=== PATIENT | male | born 1980 | race Caucasian/White ===

== ENCOUNTER 2016-03-26 14:42 | Emergency (ER) | payer SELFPAY ==
--- NOTE | 2016-03-26 16:31 | ERRECORD ---
[facility] EMERGENCY RECORD HPI ABDOMINAL PAIN (FriMar 27, 2016 00:04 MPUR) CHIEF COMPLAINT: Patient presents for evaluation of knot under belly button. HISTORIAN: History provided by patient, 1 week history knot under belly button. awoke with it one day and it has persisted with soreness. seems worse when reaching or straining. QUALITY: Pain is dull in nature, described as aching. SEVERITY: Maximum severity of symptoms mild, Currently symptoms are mild. TIME COURSE: There has been no change in the patient's symptoms over time. ASSOCIATED WITH: No associated symptoms. RELIEVED BY: Patient's condition relieved by nothing. EXACERBATED BY: Patient's condition exacerbated by nothing. ROS (FriMar 27, 2016 00:07 MPUR) CONSTITUTIONAL: Historian denies fever. EYES: Historian denies eye pain. ENT: Historian denies rhinorrhea. CARDIOVASCULAR: Historian denies chest pain. RESPIRATORY: Historian denies cough. GI: Denies N,V,D,C See also HPI. GENITOURINARY MALE: Historian denies dysuria. MUSCULOSKELETAL: Historian denies arthralgias. SKIN: Historian denies rash. NEUROLOGIC: Historian denies seizures. ENDOCRINE: Historian denies skin changes. HEMO/LYMPHATIC: Historian denies easy bruising. PAST MEDICAL HISTORY (14:50 EPIE) MEDICAL HISTORY: No past medical history, Flu vaccine not up to date, Tetanus not up to date, Pneumococcal vaccine not up to date,. MALE SURGICAL HISTORY: Patient has no surgical history,. PSYCHIATRIC HISTORY: No previous psychiatric history,. SOCIAL HISTORY: Patient denies alcohol use, Patient denies drug use, Patient currently uses tobacco, smokes cigarettes, daily, Patient smokes 1 pack per day. FAMILY HISTORY: Family history is non-contributory to this case. KNOWN ALLERGIES No Known Drug Allergies CURRENT MEDICATIONS (14:49 EPIE) None VITAL SIGNS (14:47 EPIE) VITAL SIGNS: BP: 135/72, Pulse: 84, Resp: 20 (Non-Labored), Temp: 97.9 (Oral), Pain: 6, O2 sat: 97 on Room Air, Time: 03/26/2016 14:47. &a-1R&a+25V*p+0X*p5760V*c202B*c15G*c2P*p-0X&a-25V&a+1R Name: Quinten Mendoza : 1980 M36 MedRec: [id number] AcctNum: [id number] Prepared: FriMar 27, 2016 00:15 by Interface Page 1 of 3 pMD [facility] EMERGENCY RECORD PHYSICAL EXAM CONSTITUTIONAL: Vital signs reviewed. (FriMar 27, 2016 00:07 MPUR) HEAD: Head exam included findings of head atraumatic. (FriMar 27, 2016 00:07 MPUR) EYES: Eye exam included findings of eyelids normal to inspection, Sclera normal. (FriMar 27, 2016 00:07 MPUR) ENT: Nose exam normal, no nasal deformity, mucous membranes moist. (FriMar 27, 2016 00:07 MPUR) NECK: Trachea midline, no contusions. (FriMar 27, 2016 00:07 MPUR) RESPIRATORY CHEST: Respiratory exam included findings of no respiratory distress, Breath sounds clear, no increased work of breathing, rate nl. (FriMar 27, 2016 00:07 MPUR) CARDIOVASCULAR: Cardiovascular exam included findings of heart rate regular rate and rhythm, Heart sounds normal. (FriMar 27, 2016 00:07 MPUR) ABDOMEN MALE: Abdominal exam included findings of abdomen tender, periumbilical, Bowel sounds normal, Liver normal, Spleen normal, no distension, Mass palpated, periumbilical 2.6-4.0 cm in diameter, Palpation of abd revealed umbilical hernia with mild tenderness. It was successfully reduced with pressure and relief of the sxs. (FriMar 27, 2016 00:08 MPUR) LOWER EXTREMITY: no cyanosis, no edema. (FriMar 27, 2016 00:07 MPUR) NEURO: Speech normal, Memory normal, alert, moving all extremities well. (FriMar 27, 2016 00:07 MPUR) SKIN: Skin exam included findings of skin warm, dry, no rash. (FriMar 27, 2016 00:07 MPUR) PSYCHIATRIC: Normal affect, Recent memory normal. (FriMar 27, 2016 00:07 MPUR) DOCTOR NOTES RE-EVALUATION: Routine re-evaluation, after observation, The patient's condition has improved, x 15 miutes all sx had resolved. (FriMar 27, 2016 00:11 MPUR) TEXT: I have reviewed and agree with nurse's past medical, family, and social history as documented on chart. Pt's vital signs have been reviewed. (FriMar 27, 2016 00:07 MPUR) PROBLEM LIST No recorded problems DIAGNOSIS (16:02 MPUR) FINAL: PRIMARY: umbilical hernia, reduced. PRESCRIPTION No recorded prescriptions &a-1R&a+25V*p+0X*s0636P*c202B*c15G*c2P*p-0X&a-25V&a+1R Name: Quinten Mendoza : 1980 6 MedRec: [id number] AcctNum: [id number] Prepared: FriMar 27, 2016 00:15 by Interface Page 2 of 3 pMD [facility] EMERGENCY RECORD DISPOSITION PATIENT: Disposition Type: Discharge, Disposition: *Discharge Home. (16:02 MPUR) Patient left the department. (16:23 EPIE) Snow: EPIE=AYLA Blanchard, Minerva MPUR=MD Trey, Junior &a-1R&a+25V*p+0X*k8494P*c202B*c15G*c2P*p-0X&a-25V&a+1R Name: Reji Sarmad : 1980 M36 MedRec: [id number] AcctNum: [id number] Prepared: FriMar 27, 2016 00:15 by Interface Page 3 of 3 pMD MTDD
--- NOTE | 2016-03-26 16:37 | PICIS ---
[facility] EMERGENCY RECORD TRIAGE (FriMar 26, 2016 14:49 EPIE) TRIAGE NOTES: Pt has an abdominal knot started one week ago. States it hurts with movement. (FriMar 26, 2016 14:49 EPIE) PATIENT: NAME: Cora Mendoza, AGE: 36, GENDER: male, : Fri1980, TIME OF GREET: FriMar 26, 2016 14:42, PREFERRED LANGUAGE: Taiwanese, ETHNICITY: Not or , ECODE BILLING MAP: [facility] ER, SSN: [id number], Zip Code: [address], KG WEIGHT: [phone], PHONE: , , , PERSON ID: [id number], PCP: none. (FriMar 26, 2016 14:49 EPIE) COMPLAINT: ABDOMINAL PAIN. (FriMar 26, 2016 14:49 EPIE) ADMISSION: URGENCY: 3 Urgent, ADMISSION SOURCE: Home, TRANSPORT: CAR, BED: TRIAGE. (FriMar 26, 2016 14:49 EPIE) TRIAGE SCREENING: Patient denies suicidal ideation, Patient denies presence of domestic violence. (14:50 EPIE) TREATMENTS IN PROGRESS: Treatments given Prehospital: none. (14:50 EPIE) PROVIDERS: TRIAGE NURSE: Minerva Blanchard RN. (FriMar 26, 2016 14:49 EPIE) VITAL SIGNS: BP 135/72, Pulse 84, Resp 20, (Non-Labored), Temp 97.9, (Oral), Pain 6, O2 Sat 97, on Room Air, Time 03/26/2016 14:47. (14:47 EPIE) PREVIOUS VISIT ALLERGIES: No Known Drug Allergies. (FriMar 26, 2016 14:49 EPIE) No Known Drug Allergies. (14:50 EPIE) KNOWN ALLERGIES No Known Drug Allergies CURRENT MEDICATIONS (14:49 EPIE) None VITAL SIGNS (14:47 EPIE) VITAL SIGNS: BP: 135/72, Pulse: 84, Resp: 20 (Non-Labored), Temp: 97.9 (Oral), Pain: 6, O2 sat: 97 on Room Air, Time: 03/26/2016 14:47. NURSING ASSESSMENT: ABDOMEN (15:00 EPIE) CONSTITUTIONAL: Patient arrives ambulatory, Gait steady, History obtained from patient, Patient appears comfortable, Patient cooperative, Patient alert, Oriented to person, place and time, Skin warm, Skin dry, Skin normal in color, Mucous membranes pink, Mucous membranes moist, Patient is well-groomed, Pt has an abdominal knot started one week ago. States it hurts with movement. PAIN: aching pain, periumbilical, Onset of pain 03/19/2016, on a scale 0-10 patient rates pain as 6. ABDOMEN: Abdomen assessment findings include abdomen symmetrical, Hernia to, umbilical region, Abdomen soft, no associated nausea, no associated vomiting, no associated diarrhea. &a-1R&a+25V*p+0X*l1163M*c202B*c15G*c2P*p-0X&a-25V&a+1R Name: Cora Mendoza : 1980 M36 MedRec: [id number] AcctNum: [id number] Prepared: FriMar 27, 2016 00:21 by Interface Page [address] [facility] EMERGENCY RECORD GENITOURINARY MALE: no associated urinary complaints. NURSING PROCEDURE: DISCHARGE NOTE (16:18 BELE) DISCHARGE: Patient discharged to home, ambulating without assistance, friend driving, accompanied by friend, Summary of Care printed/ provided, Patient requested and was provided an electronic copy of Discharge Instructions, Transition record given to patient, Discharge instructions given to patient, Simple or moderate discharge teaching performed, by FRANCOISE LEOS RN, STRESSED IMPORTANCE OF SEEKING MEDICAL EVAL ITEMIZED IN WRITTEN DISCHARGE INSTRUCTIONS., Medication reconciliation form given, Above person(s) verbalized understanding of discharge instructions and follow-up care, Notes: PATIENT HAD NO QUESTIONS, INDICATED HE WILL FOLLOW UP WITH DR. JEONG INSTRUCTED. NURSING PROCEDURE: NURSE NOTES NURSES NOTES: Notes: Patient resting with RR even and unlabored. No new complaints at this time. Awaiting for ERMD to assess patient. (15:51 EPIE) Notes: PATIENT SITTING ON BED WITHOUT APPARENT DISTRESS. STATES HIS PAIN HAS DISSIPATED AND HE FEELS MUCH BETTER. PAIN RATED A ZERO OR 1 ON NUMERIC PAIN SCALE OF 1-10. (16:10 BELE) HPI ABDOMINAL PAIN (FriMar 27, 2016 00:04 MPUR) CHIEF COMPLAINT: Patient presents for evaluation of knot under belly button. HISTORIAN: History provided by patient, 1 week history knot under belly button. awoke with it one day and it has persisted with soreness. seems worse when reaching or straining. QUALITY: Pain is dull in nature, described as aching. SEVERITY: Maximum severity of symptoms mild, Currently symptoms are mild. TIME COURSE: There has been no change in the patient's symptoms over time. ASSOCIATED WITH: No associated symptoms. RELIEVED BY: Patient's condition relieved by nothing. EXACERBATED BY: Patient's condition exacerbated by nothing. ROS (FriMar 27, 2016 00:07 MPUR) CONSTITUTIONAL: Historian denies fever. EYES: Historian denies eye pain. ENT: Historian denies rhinorrhea. CARDIOVASCULAR: Historian denies chest pain. RESPIRATORY: Historian denies cough. GI: Denies N,V,D,C See also HPI. GENITOURINARY MALE: Historian denies dysuria. MUSCULOSKELETAL: Historian denies arthralgias. SKIN: Historian denies rash. NEUROLOGIC: Historian denies seizures. ENDOCRINE: Historian denies skin changes. HEMO/LYMPHATIC: Historian denies easy bruising. &a-1R&a+25V*p+0X*c0371V*c202B*c15G*c2P*p-0X&a-25V&a+1R Name: Cora Mendoza : 1980 M36 MedRec: [id number] AcctNum: [id number] Prepared: FriMar 27, 2016 00:21 by Interface Page [address] [facility] EMERGENCY RECORD PAST MEDICAL HISTORY (14:50 EPIE) MEDICAL HISTORY: No past medical history, Flu vaccine not up to date, Tetanus not up to date, Pneumococcal vaccine not up to date,. MALE SURGICAL HISTORY: Patient has no surgical history,. PSYCHIATRIC HISTORY: No previous psychiatric history,. SOCIAL HISTORY: Patient denies alcohol use, Patient denies drug use, Patient currently uses tobacco, smokes cigarettes, daily, Patient smokes 1 pack per day. FAMILY HISTORY: Family history is non-contributory to this case. PHYSICAL EXAM CONSTITUTIONAL: Vital signs reviewed. (FriMar 27, 2016 00:07 MPUR) HEAD: Head exam included findings of head atraumatic. (FriMar 27, 2016 00:07 MPUR) EYES: Eye exam included findings of eyelids normal to inspection, Sclera normal. (FriMar 27, 2016 00:07 MPUR) ENT: Nose exam normal, no nasal deformity, mucous membranes moist. (FriMar 27, 2016 00:07 MPUR) NECK: Trachea midline, no contusions. (FriMar 27, 2016 00:07 MPUR) RESPIRATORY CHEST: Respiratory exam included findings of no respiratory distress, Breath sounds clear, no increased work of breathing, rate nl. (FriMar 27, 2016 00:07 MPUR) CARDIOVASCULAR: Cardiovascular exam included findings of heart rate regular rate and rhythm, Heart sounds normal. (FriMar 27, 2016 00:07 MPUR) ABDOMEN MALE: Abdominal exam included findings of abdomen tender, periumbilical, Bowel sounds normal, Liver normal, Spleen normal, no distension, Mass palpated, periumbilical 2.6-4.0 cm in diameter, Palpation of abd revealed umbilical hernia with mild tenderness. It was successfully reduced with pressure and relief of the sxs. (FriMar 27, 2016 00:08 MPUR) LOWER EXTREMITY: no cyanosis, no edema. (FriMar 27, 2016 00:07 MPUR) NEURO: Speech normal, Memory normal, alert, moving all extremities well. (FriMar 27, 2016 00:07 MPUR) SKIN: Skin exam included findings of skin warm, dry, no rash. (FriMar 27, 2016 00:07 MPUR) PSYCHIATRIC: Normal affect, Recent memory normal. (FriMar 27, 2016 00:07 MPUR) EVENTS TRANSFER: Triage to Emergency Triage. (FriMar 26, 2016 14:49 EPIE) &a-1R&a+25V*p+0X*q2847T*c202B*c15G*c2P*p-0X&a-25V&a+1R Name: Cora Mendoza M : 1980 M36 MedRec: [id number] AcctNum: [id number] Prepared: FriMar 27, 2016 00:21 by Interface Page [address] [facility] EMERGENCY RECORD Emergency Triage to Emergency Room -05. (14:49 EPIE) Removed from Emergency Emergency Room -05. (16:23 EPIE) DOCTOR NOTES RE-EVALUATION: Routine re-evaluation, after observation, The patient's condition has improved, x 15 miutes all sx had resolved. (FriMar 27, 2016 00:11 MPUR) TEXT: I have reviewed and agree with nurse's past medical, family, and social history as documented on chart. Pt's vital signs have been reviewed. (FriMar 27, 2016 00:07 MPUR) PROBLEM LIST No recorded problems DIAGNOSIS (16:02 MPUR) FINAL: PRIMARY: umbilical hernia, reduced. DISPOSITION PATIENT: Disposition Type: Discharge, Disposition: *Discharge Home. (16:02 MPUR) Patient left the department. (16:23 EPIE) INSTRUCTION (16:06 MPUR) DISCHARGE: HERNIA (INGUINAL, VENTRAL, UMBIL). FOLLOWUP: Shmuel JEONG, CORA, General Surgery, [address] [place] [address], [address], [facility] [address], [phone]. SPECIAL: Keep the hernia reduced as I reduced it. Block your belly button when you are coughing, bearing down, etc to prevent it from coming out. Avoid heavy lifting. Follow up General surgery to fix it. Tylenol or Advil for Pain. PRESCRIPTION No recorded prescriptions IMAGING (16:22 EPIE) *DISCHARGE INSTRUCTIONS RECEIPT: Image captured from scanner. *SUPPLY CHARGE SHEET: Image captured from scanner. ADMIN (FriMar 27, 2016 00:12 MPUR) DIGITAL SIGNATURE: MD Trey, Junior. Snow: LORELEI=AYLA Leos, Francoise RAMIREZ=AYLA Blanchard, Minerva MPUR=MD Trey, Junior &a-1R&a+25V*p+0X*c9832U*c202B*c15G*c2P*p-0X&a-25V&a+1R Name: Cora Mendoza : 1980 M36 MedRec: [id number] AcctNum: [id number] Prepared: FriMar 27, 2016 00:21 by Interface Page 4 of 4 pMD MTDD
== END 2016-03-26 16:16 | disposition home or self-care (01) ==
LOC: NAV ERS 14:42
DX: K42.9 Umbilical hernia without obstruction or gangrene (principal); F17.210 Nicotine dependence, cigarettes, uncomplicated
CPT/HCPCS: 99283

== ENCOUNTER 2018-06-13 22:18 | Emergency (ER) | payer BC, SELFPAY | END 2018-06-13 23:15 | disposition home or self-care (01) | LOC: NAV ERS 22:18 | DX: M79.671 Pain in right foot (principal); F17.210 Nicotine dependence, cigarettes, uncomplicated | CPT/HCPCS: 99283 ==

== ENCOUNTER 2020-03-25 11:25 | Emergency (ER) | payer BC, SELFPAY ==
[2020-03-25 12:18] LABS: #Eosinphils 0.1 thou/uL (0.0-0.7); #Monocytes 0.6 thou/uL (0.11-0.59); %Basophils 0.5 % (0.0-1.0); %Eosinophils 1.4 % (0.0-10.0); %Lymphocytes 20.8 % (21.0-51.0); %Neutrophils 71.3 % (42.0-75.0); Hemoglobin 13.5 g/dL (14.0-18.0); Mean Corpuscular HGB CONC 30.6 g/dL (32.0-36.0); Mean Corpuscular Hemoglobin 26.7 pg (27.0-31.0); Mean Corpuscular Volume 87.1 fL (78.0-98.0); Mean Platelet Volume 9.2 fL (7.4-10.4); Platelet Count 231 thou/uL (130-400); RBC Distribution Width 13.8 % (11.5-14.5); Red Blood Cell (RBC) Count 5.06 mill/uL (4.70-6.10); White Blood Cell (WBC) Count 9.8 thou/uL (4.8-10.8)
[2020-03-25 12:34] LABS: Anion Gap 12 mmol/L (10-20); BUN (Urea Nitrogen) 14 mg/dL (8.9-20.6); Calc. Creatinine Clearance 0 mL/min (70-130); Carbon Dioxide 29 mmol/L (22-29); Chloride 100 mmol/L (98-107); Glucose 125 mg/dL (70-105); Potassium 4.1 mmol/L (3.5-5.1); Sodium 137 mmol/L (136-145)
== END 2020-03-25 13:41 | disposition home or self-care (01) ==
LOC: NAV ERS 11:25
DX: L03.115 Cellulitis of right lower limb (principal); I87.2 Venous insufficiency (chronic) (peripheral); R01.1 Cardiac murmur, unspecified; I10 Essential (primary) hypertension; F17.210 Nicotine dependence, cigarettes, uncomplicated
CPT/HCPCS: 36415; 80048; 85025; 85379

== ENCOUNTER 2020-06-17 20:20 | Emergency (ER) | payer OTHER ==
[2020-06-17 21:06] LABS: ALT (SGPT) 24 U/L (8-55); AST (SGOT) 19 U/L (5-34); Albumin 3.6 g/dL (3.5-5.0); Alkaline Phosphatase 110 U/L (40-110); Anion Gap 14 mmol/L (10-20); BUN (Urea Nitrogen) 14 mg/dL (8.9-20.6); Bilirubin, Total 0.3 mg/dL (0.2-1.2); Calc. Creatinine Clearance 0 mL/min (70-130); Carbon Dioxide 25 mmol/L (22-29); Chloride 101 mmol/L (98-107); Globulin 3.1 g/dL (2.4-3.5); Glucose 175 mg/dL (70-105); Potassium 3.8 mmol/L (3.5-5.1); Protein, Total 6.7 g/dL (6.0-8.3); Sodium 136 mmol/L (136-145)
[2020-06-17] MEDS ORDERED: Furosemide 40 MG TAB ONE (21:25)
== END 2020-06-17 21:43 | disposition home or self-care (01) ==
LOC: NAV ERS 20:20
DX: K46.9 Unspecified abdominal hernia without obstruction or gangrene (principal); R60.0 Localized edema; F17.210 Nicotine dependence, cigarettes, uncomplicated; I10 Essential (primary) hypertension; Z79.899 Other long term (current) drug therapy
CPT/HCPCS: 80053; 99284

== ENCOUNTER 2022-09-21 23:55 | Emergency (ER) | payer OTHER ==
[2022-09-22] MEDS ORDERED: Penicillin V Potassium 250 MG TAB ONE (00:19)
[2022-09-22] MEDS ORDERED: Ibuprofen 800 MG TAB ONE (00:19)
== END 2022-09-22 00:25 | disposition home or self-care (01) ==
LOC: NAV ERS 23:55
DX: J02.9 Acute pharyngitis, unspecified (principal); I10 Essential (primary) hypertension; F17.210 Nicotine dependence, cigarettes, uncomplicated
CPT/HCPCS: 93005

== ENCOUNTER 2023-04-21 17:25 | Emergency (ER) | payer OTHER, SELFPAY ==
[~2023-04-21 17:25] MED LIST: Iopamidol 370 76% 100 ML VIAL ONE
[2023-04-21 18:47] LABS: #Basophils 0.1 thou/uL (0.0-0.2); #Eosinphils 0.2 thou/uL (0.0-0.7); #Monocytes 0.7 thou/uL (0.11-0.59); #Neutrophils 7.1 thou/uL (1.40-6.50); %Basophils 0.7 % (0.0-1.0); %Eosinophils 1.6 % (0.0-10.0); %Lymphocytes 27.2 % (21.0-51.0); %Monocytes 5.9 % (0.0-10.0); %Neutrophils 64.5 % (42.0-75.0); Hematocrit 42.7 % (42.0-52.0); Hemoglobin 13.7 g/dL (14.0-18.0); Mean Corpuscular HGB CONC 32.2 g/dL (32.0-36.0); Mean Corpuscular Hemoglobin 28.1 pg (27.0-31.0); Mean Corpuscular Volume 87.5 fl (78.0-98.0); Mean Platelet Volume 8.9 fL (7.4-10.4); Platelet Count 226 10x3/uL (130-400); RBC Distribution Width 13.1 % (11.5-14.5); Red Blood Cell (RBC) Count 4.88 mill/uL (4.70-6.10); White Blood Cell (WBC) Count 11.1 10x3/uL (4.8-10.8)
[2023-04-21 19:05] LABS: Anion Gap 10 mmol/L (10-20); BUN (Urea Nitrogen) 14 mg/dL (8.9-20.6); Calc. Creatinine Clearance 0 mL/min (70-130); Carbon Dioxide 27 mmol/L (22-29); Chloride 105 mmol/L (98-107); Estimated GFR 109; Glucose 95 mg/dL (70-105); Sodium 138 mmol/L (136-145)
[2023-04-21] MEDS ORDERED: Ketorolac Tromethamine 30 MG (1 mL) VIAL ONE (19:52)
== END 2023-04-21 21:00 | disposition home or self-care (01) ==
LOC: NAV ERS 17:25
DX: K43.9 Ventral hernia without obstruction or gangrene (principal); F17.210 Nicotine dependence, cigarettes, uncomplicated; I10 Essential (primary) hypertension
CPT/HCPCS: 36415; 74177; 80048; 83605; 85025; 96374; J1885; Q9967

== ENCOUNTER 2025-03-03 17:23 | Emergency (ER) | payer OTHER, SELFPAY ==
[2025-03-03 18:18] LABS: Hematocrit 44.2 % (42.0-52.0); Hemoglobin 14.8 g/dL (14.0-18.0); Manual Diff?? YES; Mean Corpuscular Hemoglobin 28.2 pg (27.0-31.0); Mean Corpuscular Volume 84.2 fl (78.0-98.0); Platelet Count 217 10x3/uL (130-400); Red Blood Cell (RBC) Count 5.25 mill/uL (4.70-6.10); White Blood Cell (WBC) Count 9.2 10x3/uL (4.8-10.8)
[2025-03-03 18:19] LABS: MDiff Complete? YES; Platelet Adequacy Comment Platelets Normal
== END 2025-03-03 19:10 | disposition home or self-care (01) ==
LOC: NAV ERS 17:23
DX: L03.116 Cellulitis of left lower limb (principal); I10 Essential (primary) hypertension; F17.210 Nicotine dependence, cigarettes, uncomplicated
CPT/HCPCS: 36415; 85025; 85379; 99283